=== PATIENT | male | born 1980 | race African-American/Black ===

== ENCOUNTER 2019-08-17 11:52 | Emergency (ER) | payer MEDICAID ==
[~2019-08-17] VITALS: Ht 198.1 cm; Wt 114.0 kg
[~2019-08-17 11:52] MED LIST: DEPAKOTE; HYDROCHLOROTHIAZIDE
[2019-08-17 11:59] VITALS: BP 180/100
== END 2019-08-17 15:23 | disposition home or self-care (01) ==
LOC: ER 12:17
DX: K08.89 Other specified disorders of teeth and supporting structures (principal); R68.84 Jaw pain; I10 Essential (primary) hypertension
CPT/HCPCS: 70486; 99284

== ENCOUNTER 2021-11-11 15:37 | Emergency (ER) | payer MEDICAID, OTHER ==
[~2021-11-11] VITALS: Ht 200.7 cm; Wt 150.0 kg
[2021-11-11] MEDS ORDERED: IBUP-2030 MT (17:07)
[2021-11-11] MEDS ORDERED: IBUPROFEN 800MG TABLET PO ONE (17:15)
[2021-11-11] MEDS ORDERED: ACETAMINOPHEN 500MG TABLET PO ONE (17:15)
[2021-11-11 17:31] VITALS: BP 169/84
== END 2021-11-11 17:56 | disposition home or self-care (01) ==
LOC: ER 15:45
DX: S93.491A Sprain of other ligament of right ankle, initial encounter (principal); S83.8X1A Sprain of other specified parts of right knee, initial encounter; I10 Essential (primary) hypertension; G40.909 Epilepsy, unspecified, not intractable, without status epilepticus; W01.0XXA Fall on same level from slipping, tripping and stumbling without subsequent striking against object, initial encounter; Y93.89 Activity, other specified; Y92.018 Other place in single-family (private) house as the place of occurrence of the external cause
CPT/HCPCS: 73564; 73610; 99284